=== PATIENT | male | born 1970 | race African-American/Black ===

== ENCOUNTER 2016-09-27 21:57 | Emergency (ER) | payer OTHER ==
[2016-09-27 23:08] LABS: URINE SOURCE CLEAN CATCH
[2016-09-27 23:13] LABS: URINE APPEARANCE CLOUDY; URINE BILIRUBIN NEG (NEG); URINE BLOOD 2+ (NEG); URINE COLOR YELLOW; URINE GLUCOSE NEG (NEG); URINE KETONE NEG (NEG); URINE LEUKOCYTE ESTERASE 3+ (NEG); URINE NITRATE NEG (NEG); URINE PH 5.5 (5-8); URINE PROTEIN NEG (NEG); URINE SPECIFIC GRAVITY 1.023 (1.003-1.035); URINE UROBILINOGEN 0.2 MG/DL (NEG)
[2016-09-27 23:18] LABS: CULTURE INDICATED? YES; URINE BACTERIA AUWI NEG (NEGATIVE); URINE SQUAMOUS EPITHELIAL CELL NONE SEEN /[HPF]; UWBCS1 AUWI INNUM (0-5)
[2016-09-29 23:42] LABS: CHLAMYDIA TRACH Not Detected (Not Detected); N GONOR Detected (Not Detected)
== END 2016-09-28 00:20 | disposition home or self-care (01) ==
LOC: CED 21:57 → CFTX 21:57 → CED 23:24
DX: N34.2 Other urethritis (principal); I10 Essential (primary) hypertension; Z76.0 Encounter for issue of repeat prescription; R03.0 Elevated blood-pressure reading, without diagnosis of hypertension
CPT/HCPCS: 81003; 87086; 87491; 87591; 96372; 99283; J0696